=== PATIENT | male | born 1975 | race Hispanic/Latino ===

== ENCOUNTER 2018-05-17 17:57 | Emergency (ER) | payer BC ==
--- NOTE | 2018-05-17 18:23 | ED PDOC ---
Arrival/HPI - General Time Seen by Provider: 05/17/18 18:12 Historian: Patient - History of Present Illness Narrative History of Present Illness (Text): 05/17/18 18:19 42-year-old male presents complaining of discomfort to the mid chest after he had a choking episode at home while eating steak. Patient states that he felt that the steak became lodged in his throat, he attempted to vomit it out he said that he felt the steak go down is esophagus, however he started throwing up afterwards and threw up food particles. States that he feels better now however he still has discomfort to the mid chest. States that he is not try to drink or eat anything to see if he can swallow without having difficulty since that episode started. Otherwise he reports no fever, cough, shortness of breath, back pain, chest pain, abdominal pain, nausea, vomiting. He has no other complaints. PMD Jim Past Medical History - Infectious Disease Hx of Infectious Diseases: None - Tetanus Immunization Tetanus Immunization: Up to Date - Gastrointestinal Hx Gastroesophageal Reflux: Yes - Psychiatric Hx Depression: No Hx Emotional Abuse: No Hx Physical Abuse: No Hx Substance Use: No - Past Surgical History Past Surgical History: No Previous - Suicidal Assessment Feels Threatened In Home Enviroment: No Family/Social History Family/Social History: No Known Family HX Hx Alcohol Use: Yes Hx Substance Use: No Hx Substance Use Treatment: No Allergies/Home Meds Allergies/Adverse Reactions: Allergies No Known Allergies Allergy (Verified 05/17/18 18:29) Home Medications: Home Meds Medication Instructions Recorded Confirmed No Known Home Med 05/17/18 05/17/18 Review of Systems - Review of Systems Constitutional: absent: Fatigue, Fevers Respiratory: SOB, Cough Cardiovascular: Chest Pain. absent: Palpitations Gastrointestinal: Vomiting. absent: Abdominal Pain, Nausea Musculoskeletal: absent: Arthralgias, Back Pain, Neck Pain Skin: absent: Rash, Pruritis, Skin Lesions Neurological: absent: Headache, Dizziness Physical Exam Appearance: Positive for: Well-Appearing, Non-Toxic, Comfortable, Other (Patient speaking in full sentences, no drooling.) Pain Distress: None Mental Status: Positive for: Alert and Oriented X 3 - Systems Exam Head: Present: Atraumatic, Normocephalic Pupils: Present: PERRL Extroacular Muscles: Present: EOMI Conjunctiva: Present: Normal Mouth: Present: Moist Mucous Membranes Neck: Present: Normal Range of Motion Respiratory/Chest: Present: Clear to Auscultation, Good Air Exchange. No: Respiratory Distress, Accessory Muscle Use Cardiovascular: Present: Regular Rate and Rhythm, Normal S1, S2. No: Murmurs Abdomen: No: Tenderness, Distention, Peritoneal Signs Back: Present: Normal Inspection Upper Extremity: Present: Normal Inspection. No: Cyanosis, Edema Lower Extremity: Present: Normal Inspection. No: Edema Neurological: Present: GCS=15, CN II-XII Intact, Speech Normal, Motor Func Grossly Intact, Normal Sensory Function Skin: Present: Warm, Dry, Normal Color. No: Rashes Psychiatric: Present: Alert, Oriented x 3, Normal Insight, Normal Concentration Medical Decision Making ED Course and Treatment: 05/17/18 18:23 Plan : - CXR 05/17/18 18:38 On reevaluation, patient was able to tolerate p.o. fluids, states that the cup of water that he drink went down easily and he does not have a sensation of any food being stuck in his throat or in his chest. Only reports of mild heartburn sensation to the mid chest. On exam, patient remains awake alert and oriented 3 in no acute distress, speaking in full sentences, no drooling. Patient offered crackers, advised to try to eat the crackers to see if he can swallow without any difficulty. 05/17/18 19:18 Patient tolerated crackers well, with p.o. fluids without any difficulty swallowing. CXR : NAD, as read by PA. Patient given Maalox p.o. and viscous lidocaine p.o. 05/17/18 19:31 On reevaluation, patient reports improvement of symptoms, denies any chest pain, back pain, shortness of breath or abdominal pain. On exam, patient remains awake alert and oriented 3 in no acute distress. Advised to follow up with primary care physician in 1-2 days without fail. Return to the emergency room at any time for any new or worsening symptoms. Patient states he fully agrees with and understands discharge instructions. States that he agrees with the plan and disposition. Verbalized and repeated discharge instructions and plan. I have given the patient opportunity to ask any additional questions. - PA / CUSTOMER RESOURCE SPECIALIST / Resident Statement MD/DO has reviewed & agrees with the documentation as recorded. Disposition/Present on Arrival - Present on Arrival Any Indicators Present on Arrival: No History of DVT/PE: No History of Uncontrolled Diabetes: No Urinary Catheter: No History Surgical Site Infection Following: None - Disposition Have Diagnosis and Disposition been Completed?: Yes Diagnosis: Choking episode, Dyspepsia Disposition: HOME/ ROUTINE Disposition Time: 19:30 Patient Plan: Discharge Condition: IMPROVED Discharge Instructions (ExitCare): Dyspepsia, Choking Additional Instructions: Thank you for letting us take care of you today. You were treated for choking episode, dyspepsia. The emergency medical care you received today was directed at your acute symptoms. If you were prescribed any medication, please fill it and take as directed. It may take several days for your symptoms to resolve. Return to the Emergency Department if your symptoms worsen, do not improve, or if you have any other problems. Please contact your doctor in 2 days for re-evaluation and follow up / or call one of the physicians/clinics you have been referred to that are listed on the Patient Visit Information form that is included in your discharge packet. Bring any paperwork you were given at discharge with you along with any medications you are taking to your follow up visit. Our treatment cannot replace ongoing medical care by a primary care provider (PCP) outside of the emergency department. Thank you for allowing the [facility] team to be part of your care today. If you had an X-Ray : A Radiologist will review the ED reading if any change in treatment is needed we will contact you. Referrals: Fany Fernandez DO [Primary Care Provider] - Follow up with primary Racquel Mack MD [Staff Provider] - Follow up with primary Forms: WORK NOTE
[2018-05-17 18:29] VITALS: TEMP 98.2
[2018-05-17 18:30] VITALS: BMI 23.6
[2018-05-17] MEDS ORDERED: Alum-Mag Hydrox-Simethicone Susp (30 mL) PO STA (18:48)
[2018-05-17] MEDS ORDERED: Lidocaine 2% Viscous 100 ml PO STA (18:48)
[2018-05-17 19:53] VITALS: BP 128/72; PULSE 81; RESP 17; O2SAT 97
--- NOTE | 2018-05-18 12:51 | RAD ---
Date of service: 05/17/2018 PROCEDURE: CHEST RADIOGRAPH, 1 VIEW HISTORY: cheking episode COMPARISON: None available. FINDINGS: LUNGS: Clear. PLEURA: No pneumothorax or pleural fluid seen. CARDIOVASCULAR: No aortic atherosclerotic calcification present. Normal. OSSEOUS STRUCTURES: No significant abnormalities. VISUALIZED UPPER ABDOMEN: Normal. OTHER FINDINGS: None. IMPRESSION: No active disease.
== END 2018-05-17 19:50 | disposition home or self-care (01) ==
LOC: ED 17:57
DX: R10.13 Epigastric pain (principal); R09.89 Other specified symptoms and signs involving the circulatory and respiratory systems; K21.9 Gastro-esophageal reflux disease without esophagitis